=== PATIENT | female | born 1955 | race Caucasian/White ===

== ENCOUNTER 2016-03-13 12:43 | Emergency (ER) | payer BC ==
[2016-03-13] MEDS ORDERED: OPTIRAY 350 100 ML VIAL HMH IV ONE (12:44)
[2016-03-13] MEDS ORDERED: SODIUM CHLORIDE 0.9% 100 ML IV ONE (17:19)
[2016-03-13] MEDS ORDERED: CEFTRIAXONE 1 GM VIAL ONE (17:19)
[2016-03-13] MEDS ORDERED: ONDANSETRON 4 MG VIAL ONE (18:34)
[2016-03-13] MEDS ORDERED: MORPHINE 4 MG/ML SYR ONE ×2 (18:34→20:12)
== END 2016-03-13 20:54 | disposition home or self-care (01) ==
LOC: ER 12:43
CPT/HCPCS: 74177; 96361; 96374; 96375; 96376